=== PATIENT | female | born 1965 | race Asian ===

== ENCOUNTER 2025-05-31 11:18 | Emergency (ER) | payer OTHER ==
[~2025-05-31] VITALS: Ht 162.6 cm; Wt 63.5 kg
[2025-05-31 11:38] VITALS: BP 133/74; TEMP 97.9; O2SAT 98
[2025-05-31] MEDS ORDERED: SULF1TAB48 PO (12:10)
[2025-05-31] MEDS ORDERED: KETO10TA2 PO (12:10)
== END 2025-05-31 12:19 | disposition home or self-care (01) ==
LOC: ER 11:18
DX: M79.672 Pain in left foot (principal); E11.9 Type 2 diabetes mellitus without complications

== ENCOUNTER 2025-06-08 07:41 | Emergency (ER) | payer OTHER ==
[~2025-06-08] VITALS: Ht 165.1 cm; Wt 74.8 kg
[~2025-06-08 07:41] MED LIST: KETO10TA2 PO; SULF1TAB48 PO
[2025-06-08 07:42] VITALS: BP 128/73; TEMP 98.3; O2SAT 99
[2025-06-08] MEDS ORDERED: SULF1TAB48 PO (07:51)
== END 2025-06-08 08:00 | disposition home or self-care (01) ==
LOC: ER 07:45
DX: M79.676 Pain in unspecified toe(s) (principal); E11.628 Type 2 diabetes mellitus with other skin complications; L08.9 Local infection of the skin and subcutaneous tissue, unspecified